=== PATIENT | male | born 1985 | race African-American/Black ===

== ENCOUNTER 2018-11-09 00:03 | Emergency (ER) | payer SELFPAY ==
[~2018-11-09] VITALS: Ht 172.7 cm; Wt 83.9 kg
[2018-11-09 00:32] VITALS: BP 159/88
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
== END 2018-11-09 01:11 | disposition home or self-care (01) ==
LOC: ER 00:03
DX: S01.412D Laceration without foreign body of left cheek and temporomandibular area, subsequent encounter (principal); W26.8XXD Contact with other sharp object(s), not elsewhere classified, subsequent encounter
CPT/HCPCS: 99281